=== PATIENT | female | born 1975 | race Two or more races ===

== ENCOUNTER 2017-11-24 10:21 | Outpatient (CLI) | payer OTHER ==
[~2017-11-24 10:21] MED LIST: TAPAZOLE5 M1 PO
== END 2017-11-24 10:32 | disposition home or self-care (01) ==
LOC: SONOGRAMA 10:21
DX: E04.1 Nontoxic single thyroid nodule (principal)

== ENCOUNTER 2017-12-21 07:36 | Emergency (ER) | payer OTHER ==
[~2017-12-21] VITALS: Ht 152.4 cm; Wt 51.3 kg
[2017-12-21] MEDS ORDERED: AUGMENTIN PO (09:35)
[2017-12-21] MEDS ORDERED: INTESTINEX680 M1 PO (09:35)
== END 2017-12-21 09:47 | disposition home or self-care (01) ==
LOC: ER 07:36
DX: L02.11 Cutaneous abscess of neck (principal)

== ENCOUNTER 2018-11-15 11:05 | Outpatient (CLI) | payer OTHER ==
[~2018-11-15 11:05] MED LIST changes: +AUGMENTIN PO; +INTESTINEX680 M1 PO
== END 2018-11-15 15:44 | disposition home or self-care (01) ==
LOC: MAMO-SONO 11:05
DX: N63.10 Unspecified lump in the right breast, unspecified quadrant (principal); N63.20 Unspecified lump in the left breast, unspecified quadrant; R10.2 Pelvic and perineal pain; Z12.31 Encounter for screening mammogram for malignant neoplasm of breast

== ENCOUNTER → 2019-05-22 | Outpatient (CLI) | payer OTHER | END | disposition home or self-care (01) | LOC: MAMO-SONO 15:15 → RAD 15:44 | DX: E04.2 Nontoxic multinodular goiter (principal); R05 Cough ==

== ENCOUNTER 2019-08-20 20:02 | Emergency (ER) | payer OTHER ==
[~2019-08-20] VITALS: Ht 167.6 cm; Wt 59.0 kg
[2019-08-20] MEDS ORDERED: [UNRECOGNIZED DRUG - OTHER] (20:09)
== END 2019-08-21 05:54 | disposition designated cancer center or children's hospital (05) ==
LOC: ER 20:02
DX: S68.112A Complete traumatic metacarpophalangeal amputation of right middle finger, initial encounter (principal); W23.0XXA Caught, crushed, jammed, or pinched between moving objects, initial encounter; Y93.89 Activity, other specified; Y92.098 Other place in other non-institutional residence as the place of occurrence of the external cause; Y99.8 Other external cause status

== ENCOUNTER 2021-02-27 22:05 | Emergency (ER) | payer OTHER ==
[~2021-02-27] VITALS: Ht 165.1 cm; Wt 61.2 kg
[~2021-02-27 22:05] MED LIST changes: +[UNRECOGNIZED DRUG - OTHER]
[2021-02-27] MEDS ORDERED: PROPRANOLOL HCL10 MG (22:22)
[2021-02-27] MEDS ORDERED: TAPAZOLE10 MG (22:22)
[2021-02-27] MEDS ORDERED: MEDROLPACK PO (23:35)
== END 2021-02-28 00:19 | disposition home or self-care (01) ==
LOC: ER 22:05
DX: R06.02 Shortness of breath (principal); T39.015A Adverse effect of aspirin, initial encounter; Y92.89 Other specified places as the place of occurrence of the external cause

== ENCOUNTER 2021-09-29 08:45 | Outpatient (CLI) | payer OTHER ==
[~2021-09-29 08:45] MED LIST changes: +MEDROLPACK PO; +PROPRANOLOL HCL10 MG; +TAPAZOLE10 MG
== END 2021-09-29 08:50 | disposition home or self-care (01) ==
LOC: MAMO-SONO 08:45
PROVIDERS: ATTEND Obstetrics & Gynecology
DX: N60.11 Diffuse cystic mastopathy of right breast (principal); N60.12 Diffuse cystic mastopathy of left breast; N64.4 Mastodynia

== ENCOUNTER 2022-10-27 09:31 | Outpatient (CLI) | payer OTHER | END 2022-10-27 09:38 | disposition home or self-care (01) | LOC: MAMO-SONO 09:31 | PROVIDERS: ATTEND Obstetrics & Gynecology | DX: N64.4 Mastodynia (principal) ==

== ENCOUNTER 2023-01-20 07:15 | Outpatient (CLI) | payer OTHER | END 2023-01-20 07:25 | disposition home or self-care (01) | LOC: SONOGRAMA 07:15 | PROVIDERS: ATTEND Family Medicine | DX: R10.10 Upper abdominal pain, unspecified (principal); R10.2 Pelvic and perineal pain ==

== ENCOUNTER 2023-08-24 07:51 | Outpatient (CLI) | payer OTHER | END 2023-08-24 07:58 | disposition home or self-care (01) | LOC: TOM 07:51 | PROVIDERS: ATTEND Surgery | DX: R10.31 Right lower quadrant pain (principal); K40.90 Unilateral inguinal hernia, without obstruction or gangrene, not specified as recurrent ==

== ENCOUNTER 2023-10-28 07:38 | Outpatient (CLI) | payer OTHER | END 2023-10-28 07:44 | disposition home or self-care (01) | LOC: MAMO-SONO 07:38 | DX: D64.0 Hereditary sideroblastic anemia (principal); Z80.3 Family history of malignant neoplasm of breast ==